=== PATIENT | male | born 1970 | race Caucasian/White ===

== ENCOUNTER 2019-04-06 09:56 | Day surgery (SDC) | payer OTHER ==
[~2019-04-06] VITALS: Ht 188 cm; Wt 111.1 kg
[~2019-04-06 09:56] MED LIST: ACETAMINOPHEN 325 MG TAB PO PRN; BALANCED SALT IRRIGATION SOLUTION 500ML BAG (FOR OR EYE MACHINE) As Ordered ONE; CEFUROXIME 1MG/0.1ML INTRACAMERAL INJ As Ordered ONE; CYCLOPENTOLATE 2% OPHTH SOLN 2ML BTL OD ONE; HEALON DUET PRO(HEALON 10MG/ML 0.55ML & HEALON ENDOCOAT 30MG/ML 0.85ML) As Ordered ONE; LIDOCAINE 1% SDV 5 ML VIAL As Ordered ONE; LIDOCAINE 3.5 % 1ML OPHTH TOPICAL GEL OU ONE; MIDAZOLAM INJ 2 MG/2 ML VIAL (J2250) As Ordered ONE; OFLOXACIN 0.3 % (OCUFLOX) OPTH SOL 5ML OD ONE; PHENYLEPHRINE 2.5% OPHTH SOL 2ML OD ONE; PHENYLEPHRINE HCL 10 % OPHTH. SOL 5ML OD PRN; POVIDONE-IODINE 5% OPHTH PREP SOL 30ML As Ordered ONE; PROPARACAINE 0.5% OPHTH SOL 15ML OD PRN; TROPICAMIDE 1% OPHTH SOLN 2ML OD ONE; fentaNYL 100 MCG/2 ML INJECTION (J3010) As Ordered ONE
[2019-04-06] MEDS ORDERED: TRYPAN BLUE 0.06 % 2.25 ML OPHTH SYR (VISIONBLUE) As Ordered ONE (13:11)
[2019-04-06] MEDS ORDERED: ACETYLCHOLINE OPHTH SOLN 1% 2ML (MIOCHOL-E) As Ordered ONE (13:26)
[2019-04-06] MEDS ORDERED: AcetaZOLAMIDE 500 MG ER CAP As Ordered ONE (13:54)
[2019-04-06 14:00] VITALS: BP 113/73
[2019-04-06] MEDS ORDERED: TRIMETHOBENZAMIDE 300 MG CAP PO PRN (14:15)
[2019-04-06] MEDS ORDERED: AcetaZOLAMIDE 500 MG ER CAP PO ONE (14:15)
[2019-04-06] MEDS ORDERED: ONDANSETRON 4MG/2ML VIAL (J2405) IV PRN (14:15)
[2019-04-06] MEDS ORDERED: KETOROLAC 0.5% OPHTH SOLN OD ONE (14:15)
--- NOTE | 2019-04-07 13:29 | RO ---
DATE OF PROCEDURE: 04/06/2019 PREOPERATIVE DIAGNOSIS: Mature cataract, status post trauma, right eye. POSTOPERATIVE DIAGNOSIS: Mature cataract, status post trauma, right eye. PROCEDURE PERFORMED: Phacoemulsification and posterior chamber intraocular lens implantation and capsule staining. SURGEON: Kori Andrade MD ADDICTIONS COUNSELOR: ANESTHESIA: Topical with sedation. DESCRIPTION OF PROCEDURE: The patient was prepped and draped in the usual fashion. A lid speculum was placed between the lids. The eye was fixated. A stab incision was made into the anterior chamber. 1% nonpreserved lidocaine was instilled, and viscoelastic was instilled. The VisionBlue was injected underneath the viscoelastic, and the capsule was stained with the VisionBlue. Fresh Healon was instilled to remove the VisionBlue. Cystotome was used to begin a capsulorrhexis. Capsulorrhexis was carried out in a circular fashion. However, superiorly, the tore when just touched, and there was a large amount of whitish fluid from the hypermature cataract into the anterior chamber . The phacoemulsification unit was placed into the eye, and the anterior chamber was cleared out. The lens was easily grooved in two meridians and cracked. Each section of the lens was removed with the phacoemulsification unit. Any remaining cortex was removed with the I and A. The capsular bag was refilled with viscoelastic, and the posterior chamber intraocular lens was placed into the capsular bag with haptics at the 3 o'clock and 9 o'clock position. Any remaining viscoelastic was removed. Miochol and cefuroxime were instilled. The wound was watertight. The patient tolerated the procedure well and went to recovery in stable condition. At the time of surgery, when looking through into the vitreous cavity with the microscope, there appeared to be some old blood or pigment in the vitreous cavity, most likely secondary to the old trauma. This was relayed to the patient. The patient tolerated the procedure well and went to the recovery room in stable condition.
== END 2019-04-06 14:20 | disposition home or self-care (01) ==
LOC: M SDC 09:56
PROVIDERS: ATTEND Ophthalmology
DX: H25.811 Combined forms of age-related cataract, right eye (principal)
CPT/HCPCS: 66984; 92015; J2250; J3010; V2632